=== PATIENT | female | born 1990 | race Caucasian/White ===

== ENCOUNTER 2018-11-22 19:47 | Emergency (ER) | payer MEDICAID, OTHER ==
--- NOTE | 2018-11-22 21:12 | ED.PDOC ---
History of Present Illness - General Chief Complaint: ENT Problem Stated Complaint: diff swallowing Time Seen by Provider: 11/22/18 21:04 Source: patient Exam Limitations: no limitations - History of Present Illness Initial Comments: 3D ST, RESULTING IN ACUTE ODYNOPHAGIA. Timing/Duration: gradual Severity: severe Prearrival Treatment: no prearrival treatment Improving Factors: nothing Worsening Factors: eating Associated Symptoms: sore throat Allergies/Adverse Reactions: Allergies NO KNOWN ALLERGY Allergy (Verified 11/22/18 20:33) Home Medications: Ambulatory Orders Lidocaine HCl (Mouth-Throat) [Lidocaine HCl Viscous] 10 ml PO QID PRN #1 bottle 11/22/18 Review of Systems - Review of Systems Constitutional: Denies: chills, diaphoresis, fever EENTM: States: throat pain. Denies: ear pain, nose pain, nose congestion, throat swelling, mouth pain Respiratory: States: no symptoms reported. Denies: short of breath, wheezing Cardiology: States: no symptoms reported Gastrointestinal/Abdominal: States: no symptoms reported Genitourinary: States: no symptoms reported Musculoskeletal: States: no symptoms reported Skin: States: no symptoms reported Neurological: States: no symptoms reported Endocrine: States: no symptoms reported Hematologic/Lymphatic: States: no symptoms reported All other Systems: Reviewed and Negative Past Medical History (General) - Patient Medical History Hx Diabetes: No Surgical History: no surgical history - Vaccination History Hx Influenza Vaccination: No Hx Pneumococcal Vaccination: No Family Medical History - Family History Father Family History: Unknown Physical Exam - Physical Exam General Appearance: Alert, No apparent distress Eye Exam: bilateral normal Ear Exam: bilateral ear: auricle normal, canal normal, TM normal Nasal Exam: normal inspection Throat Exam: normal mouth inspection, pharynx normal Neck: non-tender, full range of motion, supple, normal inspection, trachea midline Cardiovascular/Respiratory: regular rate, rhythm, no M/R/G, normal breath sounds, no respiratory distress Skin Exam: normal color, warm/dry Progress - Progress Progress: 11/22/18 21:20 RAPID STREP NEG. ONLY 1 OF 4 CENTOR CRITERIA PRESENT (ABSENCE OF COUGH). VIRAL. Departure - Departure Clinical Impression: Acute viral pharyngitis, Odynophagia Disposition: Discharge to Home or Self Care Condition: Good Departure Forms: ED Discharge - Pt. Copy, Patient Portal Self Enrollment Instructions: Sore Throat, Adult (DC) Diet: bland diet Activity: increase activity as tolerated Referrals: Janette Ludwig NP [Primary Care Provider] - 1-2 Weeks Prescriptions: Lidocaine HCl (Mouth-Throat) [Lidocaine HCl Viscous] 10 ml PO QID PRN #1 bottle PRN Reason: Throat Pain Home Medications: Ambulatory Orders Lidocaine HCl (Mouth-Throat) [Lidocaine HCl Viscous] 10 ml PO QID PRN #1 bottle 11/22/18
[2018-11-22] MEDS: LIDOCAINE HCL 2% (MOUTH-THROAT) 15 ML UD MT ONE (21:13)
[2018-11-22 21:21] VITALS: BP 105/81
[2018-11-22 21:26] VITALS: TEMP 98.9; O2SAT 95
== END 2018-11-22 21:21 | disposition home or self-care (01) ==
LOC: ER 19:47
DX: J02.9 Acute pharyngitis, unspecified (principal)

== ENCOUNTER → 2019-02-14 | Outpatient (CLI) | payer OTHER ==
--- NOTE | 2019-02-14 10:54 | RAD ---
PROVIDED CLINICAL HISTORY/REASON FOR EXAM: Pain in right hip Findings: Number of images: 2 Location: Right hip/pelvis No acute fracture or dislocation. Joint spaces are maintained. Soft tissues are unremarkable. IMPRESSION: No evidence of acute process in the right hip. Electronically signed by: Vaughn Rodriguez MD 02/14/2019 10:52 AM CDT
--- NOTE | 2019-02-14 10:55 | RAD ---
PROVIDED CLINICAL HISTORY/REASON FOR EXAM: Pain in left knee Findings: Number of images: 4 Location: Left knee No acute fracture or dislocation. Joint spaces are maintained. No significant joint effusion. Minimal lateral patellar subluxation. IMPRESSION: No evidence of acute process in the left knee. Electronically signed by: Vaughn Rodriguez MD 02/14/2019 10:53 AM CDT
--- NOTE | 2019-02-14 10:56 | RAD ---
PROVIDED CLINICAL HISTORY/REASON FOR EXAM: Pain in right knee Findings: Number of images: 4 Location: Right knee No acute fracture or dislocation. Minimal medial compartment narrowing. Minimal lateral patellar subluxation. Small joint effusion. IMPRESSION: Small right knee joint effusion. No acute osseous abnormality. Electronically signed by: Vaughn Rodriguez MD 02/14/2019 10:54 AM CDT
== END ==
LOC: RAD 09:03
PROVIDERS: ATTEND Nurse Practitioner
DX: M25.561 Pain in right knee (principal); M25.461 Effusion, right knee; M25.562 Pain in left knee; M25.551 Pain in right hip

== ENCOUNTER → 2019-03-20 | Outpatient (CLI) | payer OTHER ==
--- NOTE | 2019-03-20 11:33 | RAD ---
EXAM DESCRIPTION: Abdomen Series CLINICAL HISTORY: 29 years Female, CHRONIC CONSTIPATION COMPARISON: None. TECHNIQUE: 3 views of the chest and abdomen. IMPRESSION: Lungs are clear. Apparent opacification of the lower lungs likely secondary to superimposed breasts. No pleural effusion or pneumothorax. Nondilated bowel gas pattern. Moderate colonic stool predominantly within the transverse, descending, and sigmoid colon which can be seen with constipation or obstipation. No pathologic calcification overlying the renal shadows or expected course of the ureters. No intraperitoneal free air, portal venous gas, or pneumatosis intestinalis. Unremarkable included osseous structures. Electronically signed by: Gui Tomas MD 03/20/2019 11:32 AM CDT
== END ==
LOC: YCFC.O 08:36
PROVIDERS: ATTEND Nurse Practitioner
DX: K59.09 Other constipation (principal)

== ENCOUNTER → 2019-07-24 | Outpatient (CLI) | payer OTHER | LOC: LAB.O 12:12 | PROVIDERS: ATTEND Nurse Practitioner | DX: Z51.81 Encounter for therapeutic drug level monitoring (principal) ==

== ENCOUNTER 2019-08-12 14:01 | Emergency (ER) | payer OTHER ==
[2019-08-12 14:16] VITALS: O2SAT 100
[2019-08-12 14:25] VITALS: TEMP 97.7
--- NOTE | 2019-08-12 15:10 | RAD ---
PROCEDURE: XR Abdomen, 1 View CLINICAL INDICATION: The patient is 29 years years old, Female; constipation, generalized abdominal pain TECHNIQUE: Frontal supine view of the abdomen/pelvis. COMPARISON: No relevant prior studies available. FINDINGS: LOWER THORAX: The lung bases show no gross consolidation.. INTRAPERITONEAL SPACE: There is no evidence of free air. GASTROINTESTINAL TRACT: The bowel gas pattern is remarkable for mild gaseous distention of the colon with gas and fecal content in the rectum but a paucity of fecal content in the colon. There is no evidence of small bowel dilatation. ORGANS: There is no organomegaly. BONES/JOINTS: There are no discernible acute osseous abnormalities or areas of osseous destruction/osteoblastic disease. OTHER FINDINGS: There are no abnormal intra-abdominal calcifications. The psoas margins are sharp. IMPRESSION: Suspect mild colonic ileus. No evidence of intestinal obstruction. Electronically signed by: Kaitlin Scherer MD 08/12/2019 3:09 PM [facility]
--- NOTE | 2019-08-12 15:17 | ED.PDOC ---
History of Present Illness - General Chief Complaint: Abdominal Pain Stated Complaint: constipation Time Seen by Provider: 08/12/19 14:16 Information Source: patient, RN notes reviewed, Vital Signs reviewed Exam Limitations: no limitations - History of Present Illness Initial Comments: This is a 29-year-old female with history of chronic constipation, possible constipation variant IBS, presenting with abdominal pain and constipation that are progressively worsened over the last 3 days. She was seen by her primary care doctor in the office and recommended she double up her daily lactulose dose. She states she had a very small BM 3 days ago, but nothing since the last normal BM was over a week ago. She reports associated nausea, no fever. She states the symptoms are chronic and longstanding, but more severe over the last week or so. She has never seen a adding machine mechanic, never had a colonoscopy/EGD performed. She has been taking Linzess. She is also tried milk of magnesia and a Fleet enema yesterday without any improvement. Abdominal Pain Onset Location: RUQ, LLQ, epigastric Pain Radiation: no radiation Quality: cramping Improving Factors: nothing Worsening Factors: nothing Associated Symptoms: nausea/vomiting, other Review of Systems - Review of Systems Constitutional: Denies: chills, fever Gastrointestinal/Abdominal: States: abdominal pain, constipation, nausea. Denies: diarrhea, vomiting Genitourinary: Denies: dysuria, hematuria All other Systems: Reviewed and Negative Past Medical History (General) - Patient Medical History Hx Stroke: No Hx Congestive Heart Failure: No Hx Diabetes: No Hx Cancer: No Surgical History: tonsillectomy, Hysterectomy - Vaccination History Hx Tetanus, Diphtheria Vaccination: No Hx Influenza Vaccination: No Hx Pneumococcal Vaccination: No - Social History Hx Tobacco Use: No Hx Alcohol Use: No Hx Substance Use: No Hx Substance Use Treatment: No Hx Depression: No - Female History Patient is a Female of Child Bearing Age (10 -59 yrs old): Yes Patient : No Family Medical History - Family History Father Family History: Unknown Physical Exam - Physical Exam General Appearance: Alert, Comfortable, No apparent distress Eyes, Ears, Nose, Throat Exam: TMs normal, pharynx normal Neck: non-tender, full range of motion Respiratory: lungs clear, normal breath sounds, no respiratory distress Cardiovascular/Chest: regular rate, rhythm, no murmur Peripheral Pulses: No deficit Gastrointestinal/Abdominal: normal bowel sounds, soft, tenderness - Mild bilateral upper quadrant, left lower quadrant. Nondistended, no rebound/guarding. Back Exam: no CVA tenderness, no vertebral tenderness Extremity: non-tender, normal inspection Neurologic: no motor/sensory deficits, alert, normal mood/affect, oriented x 3 Skin Exam: normal color, warm/dry Special Observations: Smiling, Tolerates PO Progress - Progress Progress: 08/12/19 15:25 Recheck. Abdomen benign at this time. Vital signs normal. Offered YOHANA/disimpaction, patient would prefer trial of oral medications first. Will discharge home with magnesium citrate as well as Bentyl for cramping. Recommended follow-up with PCP in 3 to 4 days for recheck. Strict warnings given to return the emergency room for worsening pain, fever, vomiting, blood in stool, or any concerns. - Results/Orders Results/Orders: ABD XR IMPRESSION: Suspect mild colonic ileus. No evidence of intestinal obstruction. Electronically signed by: Kaitlin Scherer MD 08/12/2019 3:09 PM Departure - Departure Clinical Impression: Abdominal pain Qualifiers: Abdominal location: left lower quadrant Qualified Code(s): R10.32 - Left lower quadrant pain Constipation Qualifiers: Constipation type: chronic idiopathic constipation Qualified Code(s): K59.04 - Chronic idiopathic constipation Disposition: Discharge to Home or Self Care Departure Forms: ED Discharge - Pt. Copy, Patient Portal Self Enrollment Instructions: DI for Abdominal Pain-Adult, Constipation, Adult (DC) Diet: other Activity: increase activity as tolerated Referrals: Jodi Samano FNP [Primary Care Provider] - 1-5 Days Prescriptions: Dicyclomine HCl [Bentyl] 20 mg PO Q6HR #30 tab Magnesium Citrate 300 ml PO ONCE #1 bttl Home Medications: Ambulatory Orders Dicyclomine HCl [Bentyl] 20 mg PO Q6HR #30 tab 08/12/19 Hydroxyzine HCl 50 mg PO BID PRN 08/12/19 Lactulose [Constulose] 60 gm PO DAILY 08/12/19 Linaclotide [Linzess] 290 mcg PO DAILY 08/12/19 Magnesium Citrate 300 ml PO ONCE #1 bttl 08/12/19 Zolpidem Tartrate [Ambien] 5 mg PO BEDTIME 08/12/19
[2019-08-12 15:40] VITALS: BP 116/79
== END 2019-08-12 15:39 | disposition home or self-care (01) ==
LOC: ER 14:01
DX: K59.04 Chronic idiopathic constipation (principal); R10.32 Left lower quadrant pain; R11.0 Nausea

== ENCOUNTER → 2019-11-22 | Outpatient (CLI) | payer OTHER | LOC: YCFC.O 09:51 | PROVIDERS: ATTEND Family Medicine | DX: J02.9 Acute pharyngitis, unspecified (principal) ==